=== PATIENT | female | born 1950 | race Caucasian/White ===

== ENCOUNTER 2019-03-24 19:30 | Observation (INO) ==
--- NOTE | 2019-03-24 19:58 | ERNOTE ---
Date of Service: 03/24/19 Time Seen by Provider: 03/24/19 19:55 Stated Complaint: cough fever x3 weeks Source: patient Immunizations: IMMUNIZATION HX Immunizations Up to Date Yes History of Influenza Vaccine No Hx Pneumococcal Vaccination Yes - History of Present Ilness Narrative: patient transferred from [facility] accepted for right basilar pneumonia Date (Duration): 03/24/19 Time (Timing): 19:56 Timing: constant Severity: moderate Frequency/Possible Cause: Reports: occasional episodes Modifying Factors - Improves: Reports: albuterol, oxygen Associated Symptoms: Reports: cough, shortness of breath Review of Systems - Review of Systems Constitutional: Present: no symptoms reported EYE: Present: no symptoms reported ENT: Present: no symptoms reported Respiratory: Present: shortness of breath, cough, wheezing Cardiology: Present: no symptoms reported Gastrointestinal/Abdominal: Present: no symptoms reported All Other Systems: All systems neg except as marked Medical History (Last Reviewed 03/24/19 @ 19:56 by Robert Wood MD) COPD (chronic obstructive pulmonary disease) Physical Exam - Physical Exam General Appearance: Present: wd/wn Head Exam: Present: normal inspection Eye Exam: Normal inspection: bilateral Ears, Nose, Throat: Present: normal ENT inspection Neck: Present: normal inspection Respiratory: Present: no respiratory distress, normal breath sounds Cardiovascular/Chest: Present: regular rate, rhythm Gastrointestinal/Abdominal: Present: normal bowel sounds Back Exam: Present: normal inspection Neurological Exam: Present: alert, oriented Skin Exam: Present: normal color Progress - Vital Signs Vital Signs: Vital Signs 03/24/19 19:33 Temperature 36.6 C Pulse Rate 110 H Respiratory Rate 16 Blood Pressure 110/65 O2 Sat by Pulse Oximetry 96 - Progress/Reassessment Chief Complaint: Cough Plan - Plan Plan: admit to hospital DR [facility],continue ABX and breathing TX Departure Clinical Impression: Pneumonia - Departure Disposition: Short Term Hospital Inpatient Condition: Good Additional Instructions: admit DR Christian
[2019-03-24] MEDS ORDERED: guaiFENesin 100 MG/5 ML SYRUP PO PRN (21:34)
[2019-03-24] MEDS ORDERED: GABAPENTIN 300 MG CAPSULE PO SCH (21:45)
[2019-03-24] MEDS ORDERED: GABAPENTIN 300 MG CAPSULE PO ONE (22:26)
[2019-03-25 06:12] LABS: Hematocrit 31.8 % (37.0-47.0); Hemoglobin 10.6 gm/dL (12.5-16.0); Mean Cell Volume 94.6 fl (78-100); Mean Corpuscular Hemoglobin 31.5 pg (27-31); Mean Corpuscular Hgb Conc 33.3 g/dl (32-36); Mean Platelet Volume 8.6 fl (8-12.5); Neutrophil # 7.6 K/mm3 (1.3-6.0); Neutrophil % 80.5 % (42-75.0); Platelet Count 358 K/mm3 (150-450); Red Blood Count 3.36 M/mm3 (4.2-5.4); Red Cell Distribution Width 13.6 % (11.5-14.0); White Blood Count 9.4 K/mm3 (4.0-10.5)
[2019-03-25] MEDS ORDERED: guaiFENesin 100 MG/5 ML SYRUP PO PRN (06:30)
[2019-03-25 06:33] LABS: Albumin * 2.4 gm/dl (3.4-5.0); Anion Gap 11.7 mmol/L (6.8-13.8); Bilirubin, Total 0.3 mg/dL (0.0-1.1); Ca. Corrected For Albumin 9.6 mg/dL (8.4-10.2); Calcium * 8.6 mg/dL (7.9-10.9); Carbon Dioxide 26.1 mmol/L (24-32.6); Potassium 3.8 mmol/L (3.4-4.6); Total Protein 6.1 gm/dL (6.2-8.2)
[2019-03-25] MEDS ORDERED: BENZOCAINE/MENTHOL 16 EACH BOX MM PRN (08:18)
[2019-03-25] MEDS ORDERED: AZITHROMYCIN 250 MG TABLET PO SCH (09:00)
--- NOTE | 2019-03-25 12:22 | HPDIS ---
Chief Complaint - Chief Complaint Date of Service: 03/25/19 Time of Service: 12:08 Chief Complaint: cough, SOB History of Present Illness: Patient presented to acute care hospital for shortness of breath and cough. She was found to be hypoxic there. She had an elevated white count there, x-ray showed right basilar infiltrate. She was given a gram of Rocephin and started on azithromycin. She was then transferred here for observation. When she got here patient said that she is feeling a lot better, denies shortness of breath. She denies fevers or chills. Since being her vital signs been stable. Patient is willing to go home. Medical History (Last Reviewed 03/24/19 @ 21:05 by Rashi Mariee RN) COPD (chronic obstructive pulmonary disease) Hyperlipemia Hypertension Hypothyroid Surgical History: Surgical History (Last Reviewed 03/24/19 @ 21:05 by Rashi Mariee RN) FH: abdominal aortic aneurysm repair (Acute) Review Of Systems (GEN) - Review of Systems Generalized/Overall Review: Absent: Weakness, Chills, Fever EENTM: Present: No Symptoms Reported Respiratory: Absent: Cough, Shortness of Breath Cardiac: Present: No Symptoms Reported Abdominal: Present: No Symptoms Reported Skin: Present: No Symptoms Reported Immunizations: IMMUNIZATION HX Immunizations Up to Date Yes History of Influenza Vaccine No Hx Pneumococcal Vaccination Yes Allergies/Adverse Reactions: Allergies Allergy/AdvReac Type Severity Reaction Status Date / Time No Known Allergies Allergy Unverified 03/24/19 21:05 Home Medications: HOME MEDICATIONS Atorvastatin Calcium 20 mg PO DAILY 03/24/19 [Last Taken 03/18/19 06:00] Ergocalciferol (Vitamin D2) [Vitamin D2] 50,000 unit PO 03/24/19 [Last Taken 03/24/19 06:00] Levothyroxine Sodium [Synthroid] 88 mcg PO DAILY 03/24/19 [Last Taken 03/24/19 06:00] Lisinopril/Hydrochlorothiazide [Lisinopril-Hctz 20-25 mg Tab] 20 tab PO DAILY 03/24/19 [Last Taken 03/24/19 06:00] Metoprolol Succinate 50 mg PO DAILY 03/24/19 [Last Taken 03/18/19 06:00] Azithromycin [Zithromax] 250 mg PO DAILY #4 tab 03/25/19 [Last Taken Unknown] guaiFENesin [Robitussin] 100 mg PO Q4H PRN syrup 03/25/19 [Last Taken Unknown] Exam - Exam Vital Signs: Vital Signs - Last Taken Temp 36.5 C 03/25/19 10:21 Pulse 105 H 03/25/19 10:21 Resp 20 03/25/19 10:21 BP 97/47 03/25/19 10:21 Pulse Ox 96 03/25/19 10:22 Constitutional: Present: Alert, Oriented x3, Cooperative ENT Exam: Present: hearing grossly normal, pharyngeal erythema Eye Exam: bilateral eye: normal inspection, EOMI Neck: Present: non-tender, supple. Absent: lymphadenopathy (R), lymphadenopathy (L) Respiratory: Present: chest non-tender, lungs clear, normal breath sounds Cardiovascular/Chest: Present: regular rate, rhythm, no murmur Abdomen: Present: Normal bowel sounds, soft, nontender Lymphatic: Present: no adenopathy Neurologic: Present: normal mood/affect Appearance: Present: appropriate appearance, appropriate insight Eye contact: Present: cooperative, good eye contact Thoughts: Present: normal thought pattern, normal mood /affect Diagnostic Studies: Abnormal Lab Results 03/25/19 03/25/19 Range/Units 06:00 Unknown RBC 3.36 L (4.2-5.4) M/mm3 Hgb 10.6 L (12.5-16.0) gm/dL Hct 31.8 L (37.0-47.0) % MCH 31.5 H (27-31) pg Immature Gran % (Auto) 0.50 H (0.001-0.429) % Immature Gran # (Auto) 0.05 H (0.000-0.0310) K/mm3 Neutrophils % 80.5 H (42-75.0) % Lymphocytes % 8.3 L (20-51) % Monocytes % 10.1 H (0.0-9) % Neutrophils # 7.6 H (1.3-6.0) K/mm3 Lymphocytes # 0.78 L (1.5-3.5) k/mm3 Est GFR (Non-Af Amer) 131 H (60-130) mL/min BUN/Creatinine Ratio 24.0 H (9.0-21.6) ALT 10 L (19-67) U/L Total Protein 6.1 L (6.2-8.2) gm/dL Albumin 2.4 L (3.4-5.0) gm/dl Laboratory Results WBC 9.4 K/mm3 (4.0-10.5) 03/25/19 06:00 RBC 3.36 M/mm3 (4.2-5.4) L 03/25/19 06:00 Hgb 10.6 gm/dL (12.5-16.0) L 03/25/19 06:00 Hct 31.8 % (37.0-47.0) L 03/25/19 06:00 MCV 94.6 fl (78-100) 03/25/19 06:00 MCH 31.5 pg (27-31) H 03/25/19 06:00 MCHC 33.3 g/dl (32-36) 03/25/19 06:00 RDW 13.6 % (11.5-14.0) 03/25/19 06:00 Plt Count 358 K/mm3 (150-450) 03/25/19 06:00 MPV 8.6 fl (8-12.5) 03/25/19 06:00 Immature Gran % (Auto) 0.50 % (0.001-0.429) H 03/25/19 06:00 Immature Gran # (Auto) 0.05 K/mm3 (0.000-0.0310) H 03/25/19 06:00 Neutrophils % 80.5 % (42-75.0) H 03/25/19 06:00 Lymphocytes % 8.3 % (20-51) L 03/25/19 06:00 Monocytes % 10.1 % (0.0-9) H 03/25/19 06:00 Eosinophils % 0.4 % (0.0-3.0) 03/25/19 06:00 Basophils % 0.2 % (0.0-1.0) 03/25/19 06:00 Nucleated RBC % 0.0 k/mm3 (0-1) 03/25/19 06:00 Neutrophils # 7.6 K/mm3 (1.3-6.0) H 03/25/19 06:00 Lymphocytes # 0.78 k/mm3 (1.5-3.5) L 03/25/19 06:00 Monocytes # 1.0 k/mm3 (0.0-1.0) 03/25/19 06:00 Eosinophils # 0.0 k/mm3 (0.0-0.7) 03/25/19 06:00 Absolute Basophils 0.0 k/mm3 (0.0-0.1) 03/25/19 06:00 Sodium 136 mmol/L (132-142) 03/25/19 Unknown Plasma Sodium 136 mmol/L (130-142) 03/25/19 Unknown Potassium 3.8 mmol/L (3.4-4.6) 03/25/19 Unknown Chloride 102 mmol/L (97-106) 03/25/19 Unknown Carbon Dioxide 26.1 mmol/L (24-32.6) 03/25/19 Unknown Anion Gap 11.7 mmol/L (6.8-13.8) 03/25/19 Unknown BUN 12 mg/dL (3-23) 03/25/19 Unknown Creatinine 0.50 mg/dL (0.4-1.4) 03/25/19 Unknown Est GFR (Non-Af Amer) 131 mL/min (60-130) H 03/25/19 Unknown BUN/Creatinine Ratio 24.0 (9.0-21.6) H 03/25/19 Unknown Random Glucose 89 mg/dL (70-110) 03/25/19 Unknown Calcium 8.6 mg/dL (7.9-10.9) 03/25/19 Unknown Calcium Adj for Albumin 9.6 mg/dL (8.4-10.2) 03/25/19 Unknown Total Bilirubin 0.3 mg/dL (0.0-1.1) 03/25/19 Unknown AST 12 U/L (0-48) 03/25/19 Unknown ALT 10 U/L (19-67) L 03/25/19 Unknown Alkaline Phosphatase 79 U/L (50-170) 03/25/19 Unknown Total Protein 6.1 gm/dL (6.2-8.2) L 03/25/19 Unknown Albumin 2.4 gm/dl (3.4-5.0) L 03/25/19 Unknown Assessment/Plan - Narrative Narrative: Patient did well overnight, no acute events. Patient was on 1 L of oxygen which came in. She maintained sats after oxygen was stopped and was able to not desat with ambulation on room air. Patient states she feels good and is ready go home. We will continue azithromycin for another 4 days which she will continue tomorrow. Patient will follow with her PCP as directed. No changes to her current medications. Patient is agreement with treatment plan and will follow- up as directed. Vital signs been stable she has been afebrile. - Assessment/Plan (1) Pneumonia Problem: Acute (2) COPD (chronic obstructive pulmonary disease) Problem: Chronic (3) FH: abdominal aortic aneurysm repair Problem: Chronic (1) Pneumonia Problem: Acute (2) COPD (chronic obstructive pulmonary disease) Problem: Chronic (3) FH: abdominal aortic aneurysm repair Problem: Chronic Description of Stay: Patient did well overnight, no acute events. Patient was on 1 L of oxygen which came in. She maintained sats after oxygen was stopped and was able to not desat with ambulation on room air. Patient states she feels good and is ready go home. We will continue azithromycin for another 4 days which she will continue tomorrow. Patient will follow with her PCP as directed. No changes to her current medications. Patient is agreement with treatment plan and will follow- up as directed. Vital signs been stable she has been afebrile. Procedures Performed: none Results and Findings: Lab Pending Results 03/25/19 06:00: WBC 9.4, RBC 3.36 L, Hgb 10.6 L, Hct 31.8 L, MCV 94.6, MCH 31.5 H, MCHC 33.3, RDW 13.6, Plt Count 358, MPV 8.6, Immature Gran % (Auto) 0.50 H, Immature Gran # (Auto) 0.05 H, Neutrophils % 80.5 H, Lymphocytes % 8.3 L, Monocytes % 10.1 H, Eosinophils % 0.4, Basophils % 0.2, Nucleated RBC % 0.0, Neutrophils # 7.6 H, Lymphocytes # 0.78 L, Monocytes # 1.0, Eosinophils # 0.0, Absolute Basophils 0.0 03/25/19 : Sodium 136, Plasma Sodium 136, Potassium 3.8, Chloride 102, Carbon Dioxide 26.1, Anion Gap 11.7, BUN 12, Creatinine 0.50, Est GFR (Non-Af Amer) 131 H, BUN/Creatinine Ratio 24.0 H, Random Glucose 89, Calcium 8.6, Calcium Adj for Albumin 9.6, Total Bilirubin 0.3, AST 12, ALT 10 L, Alkaline Phosphatase 79, Total Protein 6.1 L, Albumin 2.4 L Discharge Location: Home Disposition: Home self-care Condition: Good Discharge Activity: Activity as tolerated Discharge Diet: General/regular food Prescriptions (Any new or edited meds): Azithromycin [Zithromax] 250 mg PO DAILY #4 tab Transmission Status: Pending to [facility] #[id number] Complete Home Medications List: Complete Home Medication List: Atorvastatin Calcium 20 mg PO DAILY 03/24/19 Ergocalciferol (Vitamin D2) [Vitamin D2] 50,000 unit PO 03/24/19 Levothyroxine Sodium [Synthroid] 88 mcg PO DAILY 03/24/19 Lisinopril/Hydrochlorothiazide [Lisinopril-Hctz 20-25 mg Tab] 20 tab PO DAILY 03/24/19 Metoprolol Succinate 50 mg PO DAILY 03/24/19 Azithromycin [Zithromax] 250 mg PO DAILY #4 tab 03/25/19 guaiFENesin [Robitussin] 100 mg PO Q4H PRN syrup 03/25/19
[2019-03-25 14:11] VITALS: BP 130/66
== END 2019-03-25 14:30 | disposition home or self-care (01) ==
LOC: ER 19:30 → MS 20:13 → INTOOBSV 20:13 → MS 20:48
PROVIDERS: ADMIT Family Medicine; ATTEND Family Medicine
CPT/HCPCS: 36415; 80053; 85025; 99285; G0378